=== PATIENT | female | born 1940 | race Caucasian/White ===

== ENCOUNTER 2019-04-02 14:04 | Emergency (ER) | payer MEDICARE, SELFPAY ==
--- NOTE | ~2019-04-02 | US_ITS ---
EXAMINATION: US venous doppler LE EXAM DATE: 04/02/2019 15:41 INDICATION: Swelling. TECHNIQUE: Multiple grayscale, color flow and Doppler images of the lower extremity deep venous syste ms bilaterally were obtained and reviewed. Comparison is made to prior examination from 01/02/2018. FINDINGS: Right side: The right common femoral, femoral and profunda veins demonstrate normal color flow, respi ratory variation, augmentation and compressibility. Compressibility, color flow confirmed within the right popliteal, posterior tibial, peroneal, and greater saphenous veins. Left side: The left common femoral, femoral and profunda veins demonstrate normal color flow, respira tory variation, augmentation and compressibility. Compressibility, color flow confirmed within the l eft popliteal, posterior tibial, peroneal, and greater saphenous veins. IMPRESSION: 1. No lower extremity deep venous thrombosis bilaterally. Reviewed, dictated and finalized at location B. N SOCIOLOGIST
--- NOTE | ~2019-04-02 | XR_ITS ---
EXAMINATION: XR chest 2V DATE: 04/02/2019 16:09 INDICATION: COPD TECHNIQUE: PA and lateral views of the chest are obtained. COMPARISON: 11/12/2018 FINDINGS: There is a chronic small right pleural effusion. Chronic airspace opacities are also presen t in the right lung base. No pneumothorax is identified. There is stable cardiomegaly. There is mild thoracic spondylosis. A right breast implant is noted. IMPRESSION: 1. Chronic small right pleural effusion with associated right basilar airspace opacity, consistent wi th atelectasis versus pneumonia. Reviewed, dictated and finalized at location A. TECHNICIAN IMPRESSION: 1. Chronic small right pleural effusion with associated right basilar airspace opacity, consistent with atelectasis versus pneumonia.
[2019-04-02 14:20] VITALS: BP 107/43; PULSE 90; RESP 20; TEMP 37.1; O2SAT 98
--- NOTE | 2019-04-02 15:00 | PC.NURSE ---
pt c/o sob. no resp distress noted. pulse ox 100%. o2 at 2 l nc per home settings.
[2019-04-02 15:13] LABS: Basophils Percent Auto 0.7 % (0.2-1.2); Eosinophils Absolute Auto 0.1 K/mm3 (0-0.3); Eosinophils Percent Auto 2.5 % (0-4.4); Hematocrit 34.6 % (37.0-47.0); Hemoglobin 10.5 g/dL (12.0-15.0); Immature Granulocyte Absolute 0.01 K/mm3 (0.00-0.031); Immature Granulocyte Percent A 0.2 % (0-0.5); Lymphocytes Absolute Auto 0.61 K/mm3 (0.9-3.2); Lymphocytes Percent Auto 13.8 % (18.3-44.2); Mean Corpuscular HGB Conc 30.3 g/dl (32-36); Mean Corpuscular Volume 102.1 fl (80-100); Mean Platelet Volume 10.6 fl (7.4-10.4); Monocytes Absolute Auto 0.4 K/mm3 (0.1-0.6); Monocytes Percent Auto 8.6 % (2.6-8.5); Neutrophils Absolute Auto 3.3 K/mm3 (1.3-6.7); Neutrophils Percent Auto 74.2 % (45.5-73.1); Platelet Count Result 191 k/mm3 (150-375); Red Blood Count 3.39 M/mm3 (4.2-5.4); Red Cell Distribution Width 15.9 % (11.5-14.5); White Blood Count 4.4 K/mm3 (4.5-10.0)
[2019-04-02 15:25] LABS: Blood Urea Nitrogen 39 mg/dL (7-17); Carbon Dioxide 38 mmol/L (22-30); Chloride 92 mmol/L (98-107); Estimated CRCL calculation 27 ml/min; Estimated Glomerular Filt Rate 36; Glucose 111 mg/dL (65-105); Potassium 4.4 mmol/L (3.4-5.0); Sodium 140 mmol/L (137-145)
--- NOTE | 2019-04-02 16:24 | ED.GENADULT ---
HPI - General Adult General Chief complaint: Unspecified Stated complaint: legs swollen Time Seen by Provider: 04/02/19 14:39 Source: patient, family and old records reviewed Mode of arrival: ambulatory Limitations: no limitations History of Present Illness HPI narrative: Patient is a 78-year-old female who presents with lower extremity edema which she notes is chronic in nature states she was with a family member today who had concern for the swelling and referred her to emergency department for evaluation patient notes history of DVT in the right leg but also has renal insufficiency and heart failure patient denies any chest pain shortness of breath injury or trauma or other complaints and presents in no distress patient know she tries elevation and takes her water pill with some improvement Related Data Home Medications Medication Instructions Recorded Confirmed albuterol sulfate 90 mcg/actuation 2 puff INHALATION Q4H PRN gm 03/19/19 aerosol inhaler ambrisentan 10 mg tablet 10 mg PO DAILY 03/19/19 apixaban 5 mg tablet 5 mg PO BID 03/19/19 bumetanide 1 mg tablet 3 mg PO DAILY tablet 03/19/19 buspirone 5 mg tablet 5 mg PO BID 03/19/19 calcium citrate 200 mg (950 mg) 600 mg PO DAILY tablet 03/19/19 tablet diltiazem HCl 240 mg capsule,24 240 mg PO DAILY 03/19/19 hr,extended release enalapril maleate 2.5 mg tablet 2.5 mg PO TID tablet 03/19/19 gabapentin 100 mg capsule 100 mg PO TID 03/19/19 omega 9-vun-ahs-fish oil 1,000 mg 1 cap PO DAILY 03/19/19 (120 mg-180 mg) capsule potassium chloride 20 mEq 20 meq PO DAILY 03/19/19 tablet,extended release tiotropium bromide 18 mcg capsule 1 cap INHALATION BID inhalation 03/19/19 with inhalation device ursodiol 300 mg capsule 300 mg PO TID cap 03/19/19 Allergies Allergy/AdvReac Type Severity Reaction Status Date / Time codeine Allergy Unknown Verified 09/04/18 14:29 morphine Allergy Unknown Verified 09/04/18 14:29 Review of Systems Review of Systems: All systems reviewed & are unremarkable except as noted in HPI and below PMFSH Past Medical History Medical History Atrial fibrillation, controlled Chronic atrial fibrillation Pleural effusion Family History Family History (Updated 09/04/18 @ 14:31 by DOCTOR UNKNOWN) Mother Diabetes mellitus Cerebrovascular accident Family history of dementia Sibling Hypertension Grandparent Diabetes mellitus Family history of cardiovascular disease Carcinoma of colon Family history unknown Family history of malignant neoplasm of bone Social History Social History Smoking status: Former smoker Second hand tobacco smoke exposure: No Smoking end date: 02/06/99 Alcohol intake: current Gender identity (if verbalized by the patient): Female Exam Narrative: Exam Narrative: GENERAL: Well-appearing, well-nourished, and in no acute distress. HEAD: Normocephalic, atraumatic. EYES: PERRLA and EOMI. ENT: Nares clear, no rhinorrhea or epistaxis. Mucous membranes moist. Oropharynx without tonsillar hypertrophy exudate or other lesions. CHEST: Clear to auscultation. No respiratory distress. No wheezes rales or rhonchi HEART: Irregularly irregular rate and rhythm. No murmur heard. Normal peripheral pulses. EXTREMITIES: Normal range of motion. 1+ edema of the lower extremities SKIN: Warm, dry, no rash. NEURO: No focal deficits. Alert and oriented x3. Neurovascularly intact. Capillary refill less than 2 seconds PSYCH: Normal mood and affect. Course Course Emergency Course: Patient in the room in no distress aware of case findings treatment plan and diagnosis agreeing to follow-up as directed or to return if symptoms worsen or concerns Vital Signs Vital signs: Vital Signs Temperature 98.7 F 04/02/19 14:20 Pulse Rate 90 04/02/19 14:20 Respirato
[2019-04-02 16:40] VITALS: RESP 18
== END 2019-04-02 16:40 | disposition home or self-care (01) ==
PROVIDERS: Emergency Medicine Emergency Medical Services; Emergency Provider Emergency Medicine; PCP Internal Medicine
DX: R60.0 Localized edema (principal); I48.20 Chronic atrial fibrillation, unspecified; Z87.891 Personal history of nicotine dependence
CPT/HCPCS: 36415; 71046; 80048; 85025; 93970; 99284

== ENCOUNTER 2020-05-04 17:32 | Inpatient (IN) | payer MEDICARE, SELFPAY ==
--- NOTE | ~2020-05-04 | XR_ITS ---
EXAMINATION: XR chest 1V portable DATE: 05/04/2020 22:02 INDICATION: Shortness of breath. TECHNIQUE: A single frontal view of the chest was obtained. COMPARISON: Chest 2 views 04/02/2019, CT abdomen and pelvis 05/04/2020 FINDINGS: There are small right and moderate-sized left pleural effusions. There are airspace opaciti es at the lung bases. There is mild scarring at right lung apex. No pneumothorax. Cardiomegaly is not ed. IMPRESSION: 1. Small right and moderate-sized left pleural effusions. 2. Airspace opacities at the lung bases, likely atelectasis. 3. Cardiomegaly. Reviewed, dictated and finalized at location A.
--- NOTE | ~2020-05-04 | CT_ITS ---
EXAMINATION: CT abdomen pelvis w con DATE: 05/04/2020 20:28 INDICATION: Left upper quadrant abdominal pain. Abdominal wall abscess. TECHNIQUE: Computed tomography (CT) of the abdomen and pelvis was performed with 100 mL Omnipaque 350 intravenous contrast. Automated exposure control and iterative reconstruction technique were employe d. The dose-length product was 429.61 mGy-cm. COMPARISON: CT abdomen and pelvis 11/06/2018 FINDINGS: The visualized portions of the lung bases demonstrate emphysema. There are small right and moderate-sized left pleural effusions with chronic pleural thickening on the right. There is dependen t atelectasis in left lung. There are peripheral airspace opacities in right middle lobe and right lo wer lobe, consistent with rounded atelectasis. Calcified pulmonary nodules are consistent with old gr anulomatous disease. Cardiomegaly is noted. No pericardial effusion. There are bilateral breast impla nts. The left breast implant is ruptured. The liver and gallbladder are normal. Calcifications in the spleen are consistent with old granulomatous disease. The pancreas and adrenal glands are normal. Th ere is cortical thinning of the kidneys. There are cysts in right kidney measuring up to 2.4 cm. Ther e are no dilated loops of bowel. The appendix is not visualized. There is a filter in the infrarenal inferior vena cava. There are no pathologically enlarged lymph nodes. There is a small volume of asci tex. There is extensive edema of the body wall and intra-abdominal fat. There is a 4.3 cm linear fore ign body in the left ischiorectal fat. There is moderate lumbar spondylosis. IMPRESSION: 1. Anasarca including small right and moderate-sized left pleural effusions and small volume of ascit es. 2. Cardiomegaly. 3. Chronic 4.3 cm linear foreign body in the left ischiorectal fat. Reviewed, dictated and finalized at location A. IMPRESSION: 1. Anasarca including small right and moderate-sized left pleural effusions and small volume of ascites. 2. Cardiomegaly. 3. Chronic 4.3 cm linear foreign body in the left ischiorectal fat.
--- NOTE | ~2020-05-04 | XR_ITS ---
XR chest 2V 05/06/2020 12:23 Indication: Pleural effusion Procedure: PA and lateral views of the chest Comparison: Comparison to multiple prior studies sequentially, with oldest reviewed study dated 06/2018. Findings: Cardiomegaly. Bibasilar airspace disease. Small effusions. No pneumothorax. Impression: 1: Bibasilar airspace disease may represent pneumonia and/or atelectasis. 2: Small pleural effusions. Reviewed, dictated and finalized at location B. Impression: 1: Bibasilar airspace disease may represent pneumonia and/or atelectasis. 2: Small pleural effusions.
[2020-05-04 18:14] VITALS: BP 122/36; PULSE 80; RESP 16; TEMP 36.1; O2SAT 98
[2020-05-04 19:52] LABS: Basophils Percent Auto 0.3 % (0.2-1.2); Eosinophils Absolute Auto 0.1 K/mm3 (0-0.3); Eosinophils Percent Auto 0.8 % (0-4.4); Hematocrit 38.9 % (37.0-47.0); Hemoglobin 11.8 g/dL (12.0-15.0); Immature Granulocyte Absolute 0.03 K/mm3 (0.00-0.031); Immature Granulocyte Percent A 0.5 % (0-0.5); Lymphocytes Absolute Auto 0.68 K/mm3 (0.9-3.2); Lymphocytes Percent Auto 11.3 % (18.3-44.2); Mean Corpuscular HGB Conc 30.3 g/dl (32-36); Mean Corpuscular Hemoglobin 29.9 pg (26-34); Mean Corpuscular Volume 98.7 fl (80-100); Mean Platelet Volume 10.8 fl (7.4-10.4); Monocytes Absolute Auto 0.5 K/mm3 (0.1-0.6); Monocytes Percent Auto 8.8 % (2.6-8.5); Neutrophils Absolute Auto 4.7 K/mm3 (1.3-6.7); Neutrophils Percent Auto 78.3 % (45.5-73.1); Platelet Count Result 190 k/mm3 (150-375); Red Blood Count 3.94 M/mm3 (4.2-5.4); Red Cell Distribution Width 14.8 % (11.5-14.5)
[2020-05-04 20:02] LABS: Prothrombin Time 13.4 Seconds (11.1-14.7)
[2020-05-04 20:04] LABS: Alanine Aminotransferase 25 U/L (4-35); Albumin Level 3.8 g/dL (3.5-5.1); Alkaline Phosphatase 84 U/L (38-126); Anion Gap 6 mmol/L (8-16); Aspartate Amino Transferase 40 U/L (14-36); Bilirubin,Total 0.6 mg/dL (0.2-1.3); Blood Urea Nitrogen 16 mg/dL (7-17); Calcium 8.6 mg/dL (8.4-10.2); Carbon Dioxide 32 mmol/L (22-30); Chloride 100 mmol/L (98-107); Estimated CRCL calculation 33 ml/min; Estimated Glomerular Filt Rate 48; Glucose 140 mg/dL (65-105); Potassium 5.2 mmol/L (3.4-5.0); Sodium 138 mmol/L (137-145)
--- NOTE | 2020-05-04 21:32 | ECG_ITS ---
Measurements Intervals [place] Rate: 82 P: IN: 0 QRS: 76 QRSD: 97 T: 4 QT: 363 QTc: 425 Interpretive Statements ATRIAL FIBRILLATION INCOMPLETE RIGHT BUNDLE BRANCH BLOCK CANNOT RULE OUT SEPTAL INFARCT, AGE INDETERMINATE BORDERLINE ST-T WAVE ABNORMALITY- INFERIOR LEADS BASELINE ARTIFACT- V3-V6 ABNORMAL ECG Electronically Signed On 05-05-2020 7:06:27 CDT by Fantasma Sandhu D.O.
[2020-05-04 21:53] LABS: Prothrombin Time 13.4 Seconds (11.1-14.7)
[2020-05-04 22:10] LABS: NT Pro B Type Natriuretic Pept 11500 PG/ML (5-100)
--- NOTE | 2020-05-04 23:22 | ED.GENADULT ---
HPI - General Adult General Chief complaint: Skin/Abscess/Foreign Body Stated complaint: LUMP UNDER BREAST Time Seen by Provider: 05/04/20 19:20 Source: patient and family Mode of arrival: ambulatory Limitations: no limitations History of Present Illness HPI narrative: 79-year-old with history of COPD on 2 L on home oxygen was brought in by daughter with complaints of swelling on the left side of her chest and upper abdomen for past 3 days. Patient denies any fall. She denies any chest pain, fever or chills. Onset (ago): day(s) (3) Location: chest and abdomen Radiation: back Severity: moderate Exacerbating factors: none Associated symptoms: denies other symptoms Related Data Home Medications Medication Instructions Recorded Confirmed albuterol sulfate 90 mcg/actuation 2 puff INHALATION Q4H PRN gm 03/19/19 aerosol inhaler ambrisentan 10 mg tablet 10 mg PO DAILY 03/19/19 apixaban 5 mg tablet 5 mg PO BID 03/19/19 bumetanide 1 mg tablet 3 mg PO DAILY tablet 03/19/19 buspirone 5 mg tablet 10 mg PO BID 03/19/19 calcium citrate 200 mg (950 mg) 600 mg PO DAILY tablet 03/19/19 tablet diltiazem HCl 240 mg capsule,24 240 mg PO DAILY 03/19/19 hr,extended release enalapril maleate 2.5 mg tablet 2.5 mg PO TID tablet 03/19/19 gabapentin 100 mg capsule 100 mg PO TID 03/19/19 omega 6-zle-crg-fish oil 1,000 mg 1 cap PO DAILY 03/19/19 (120 mg-180 mg) capsule potassium chloride 20 mEq 20 meq PO DAILY 03/19/19 tablet,extended release tiotropium bromide 18 mcg capsule 1 cap INHALATION BID inhalation 03/19/19 with inhalation device ursodiol 300 mg capsule 300 mg PO TID cap 03/19/19 aspirin 81 mg PO DAILY 05/04/20 05/04/20 duloxetine mg PO 05/04/20 omeprazole 05/04/20 Allergies Allergy/AdvReac Type Severity Reaction Status Date / Time codeine Allergy Unknown Unknown Verified 05/04/20 19:34 morphine Allergy Unknown Unknown Verified 05/04/20 19:34 Review of Systems Review of Systems: All systems reviewed & are unremarkable except as noted in HPI and below Constitutional: Constitutional: Reports no additional constitutional complaints Eyes: Eyes: Reports no additional eye complaints ENT: Reports system reviewed and no additional complaints, except as documented Cardiovascular: Cardiovascular: Reports as per HPI Respiratory: Respiratory: Reports as per HPI Gastrointestinal: Gastrointestinal: Reports as per HPI Musculoskeletal: Musculoskeletal: Reports no additional musculoskeletal complaints Neurologic: Reports system reviewed and no additional complaints, except as documented Endocrine: Endocrine: Reports no additional endocrine complaints Hematologic/Lymphatic: Hematologic/Lymphatic: Reports no additional hematologic/lymphatic complaints [facility] Past Medical History Medical History Atrial fibrillation, controlled Chronic atrial fibrillation Pleural effusion Family History Family History Mother Diabetes mellitus Cerebrovascular accident Family history of dementia Sibling Hypertension Grandparent Diabetes mellitus Family history of cardiovascular disease Carcinoma of colon Family history unknown Family history of malignant neoplasm of bone Social History Social History Smoking status: Former smoker Second hand tobacco smoke exposure: No Smoking end date: 02/06/99 Alcohol intake: current Gender identity (if verbalized by the patient): Female Exam Narrative: Exam Narrative: GENERAL: Well-appearing, well-nourished, confusion HEAD: Normocephalic, atraumatic. EYES: PERRLA and EOMI.. NECK: Supple. CHEST: Rales , poor entry in the lower bases HEART: Regular rate and rhythm. No murmur heard. Normal peripheral pulses. ABDOMEN: Soft, nontender, nondistended, normal active bowel sounds
[2020-05-05] VITALS (17 sets, daily range): BP systolic 112–143; BP diastolic 46–74; PULSE 81–125; RESP 16–20; TEMP 36.4–36.9; O2SAT 90–99; BMI 24.2
--- NOTE | 2020-05-05 | ECHO_ITS ---
Patient Info Name: Tiffany Chavez Age: 79 years : 1940 Gender: Female Ht: 65 in Wt: 130 lbs BSA: 1.65 m2 HR: 118 bpm BP: 143 / 69 mmHg Technical Quality: Good Exam Date: 05/05/2020 8:04 AM Exam Location: [facility] Pulmonary Patient Status: Inpatient Admit Date: 05/04/2020 Staff Ordering Physician: Trace Joya MD Naturopathic Physician: Nael Bay RDCS, RT Attending Provider: Addie Rae PA-C Exam Type: CA echo doppler color flow Study Info Indications I50.20 - Unspecified systolic (congestive) heart failure Complete two-dimensional, color flow and Doppler transthoracic echocardiogram is performed. Summary 1. Complete two-dimensional, color flow and Doppler transthoracic echocardiogram is performed. 2. Normal LV size, mild LVH, normal LV systolic function, EF about 70%; diastolic dysfunction is present. RV enlargement with severe systolic dysfunction. Mild left atrial enlargement, moderate right atrial enlargement. Mild MR. Aortic valve is moderately calcified with restricted leaflet mobility; severe aortic stenosis with relatively low mean gradient; vmax 3.33 m/sec, mean gradient 24 mmHg, calculated aortic valve area 0.9 cm2. [id number] TR, severe pulmonary hypertension, RVSP 100 mmHg, dilated IVC without respiratory collapse. Left Ventricle Left ventricular chamber dimension is normal. Left ventricular systolic function is hyperdynamic, estimated at >70%. The left ventricular diastolic function is abnormal. Right Ventricle Right ventricular chamber dimension is mildly enlarged. Right ventricular systolic function is reduced. Left Atria Left atrial chamber dimension is mildly enlarged. Right Atria Right atrial chamber dimension is moderately enlarged. Aortic Valve There is severe aortic valve stenosis with a peak velocity of 333 cm/s, mean gradient of 22 mmHg, and aortic valve area of 0.9 cm2. There is moderate aortic valve calcification. Pulmonic Valve The pulmonic valve is normal. Mitral Valve The mitral valve has normal leaflets. There is mild mitral valve regurgitation. Tricuspid Valve The tricuspid valve leaflets are normal. There is mild to moderate tricuspid valve regurgitation. Severe pulmonary hypertension, estimated pulmonary arterial systolic pressure is 100 mmHg. Pericardium/Pleural The pericardium appears normal. Inferior Vena Cava Dilated inferior vena cava with no collapse upon inspiration consistent with elevated right atrial pressure, 15 mmHg. Left Ventricular Outflow Tract Name Value Normal LVOT 2D LVOT Diameter 1.9 cm LVOT Doppler LVOT Peak Gradient 2 mmHg LVOT Mean Gradient 1 mmHg LVOT VTI 19 cm LVOT VTI/AV VTI Ratio 0.3 LVOT Stroke Volume 52 ml LVOT CO 4.3 l/min LVOT CI 2.6 l/min/m2 Pulmonic Valve Name Value Normal
[2020-05-05] MEDS: FUROSEMIDE INJ 40 MG/4 ML VIAL IV PUSH ×3 (00:22→17:18)
--- NOTE | 2020-05-05 00:30 | ADMGEN ---
This patient, Tiffany Chavez, was admitted to 3 [facility] Surg Room 307-01. Patient/family oriented to hospital policies and general routines including ID bracelet, bed and alarms, visiting hours, pain management, procedures, bathroom and other care routines, personal items, smoking policy, room service/diet, and visiting hours. Information on how to activate the Rapid Response Team has been discussed. Patient/Family are encouraged to report perceived risks to care and to ask questions if they do not understand what they are told or what they should do.
[2020-05-05 03:14] LABS: Troponin I 0.019 ng/mL (0.000-0.034)
[2020-05-05 06:27] LABS: Anion Gap 4 mmol/L (8-16); Blood Urea Nitrogen 17 mg/dL (7-17); Calcium 8.6 mg/dL (8.4-10.2); Carbon Dioxide 32 mmol/L (22-30); Chloride 101 mmol/L (98-107); Estimated CRCL calculation 34 ml/min; Estimated Glomerular Filt Rate 48; Glucose 113 mg/dL (65-105); Potassium 4.4 mmol/L (3.4-5.0); Sodium 137 mmol/L (137-145)
[2020-05-05 06:33] LABS: Troponin I 0.021 ng/mL (0.000-0.034)
[2020-05-05] MEDS: IPRATROPIUM BR 0.02% INH SOLN 0.5 MG/2.5 ML VIAL INHALATION ×3 (07:45→21:18)
[2020-05-05] MEDS: ALBUTEROL SULFATE NEB 2.5 MG/0.5 ML INH 5 MG INHALATION ×3 (07:45→21:18)
[2020-05-05 08:52] LABS: Troponin I 0.017 ng/mL (0.000-0.034)
[2020-05-05] MEDS: busPIRone HCL 5 MG TABLET 10 MG PO ×2 (09:13→20:36)
[2020-05-05] MEDS: ASPIRIN 81 MG CHEWABLE TABLET PO (09:13)
[2020-05-05] MEDS: FERROUS SULFATE 324 MG TABLET PO (09:16)
[2020-05-05] MEDS: ENALAPRIL MALEATE 2.5 MG TABLET PO ×2 (09:16→20:37)
[2020-05-05] MEDS: MEMANTINE 5 MG TABLET PO ×2 (09:16→20:37)
[2020-05-05] MEDS: DULoxetine HCL 60 MG CAPSULE.DR PO (09:17)
--- NOTE | 2020-05-05 10:51 | PM.IMHP ---
H&P: HPI History of Present Illness Date/Time: 05/05/20 10:51 Chief Complaint: Abd swelling Narrative: This is an 79 year old woman with history of chronic atrial fibrillation not on any anticoagulation due to history of GI bleed, chronic right-sided heart failure due to COPD and pulmonary hypertension, chronic respiratory failure on oxygen, dementia, who presented to the ER from [facility] in [place], [place] with complaints of swelling to her abdomen. The patient was getting a bath prior to arrival in the noticed some swelling to her left upper abdomen and decided to bring her into the hospital for further evaluation. The patient is a poor historian secondary to dementia. I spoke with the patients daughter, Marsha Osman, who informed me that she has been seeing her mother at the [facility] and everything was going well until they noticed this swelling prior to arrival and brought her in. The patient does have a [employer] at [facility], and states the patient's right Lung does not work . The patient had a right pleural catheter but it had fallen out a few years ago and could not be replaced. The patient reports having some shortness of breath, more than normal even at rest. Oxygen saturation was 97% on 2.5 L. She denies any chest pain, change to her cough, fever, chills, nausea, vomiting, abdominal pain, diarrhea, constipation, leg swelling, calf pain, dysuria, frequent urination, lightheadedness, dizziness or any other symptoms at this time. Code Status- Full Code POA- Daughter, Marsha Osman Review of Systems Review of Systems: ROS unobtainable: Yes unobtainable due to medical condition [facility] Past Medical History Medical History (Updated 05/05/20 @ 16:11 by Addie Rae PA-C) Atrial fibrillation, controlled Chronic anemia Chronic atrial fibrillation Chronic respiratory failure CKD (chronic kidney disease), stage III Mitral valve insufficiency Nonrheumatic aortic (valve) stenosis PAOD (peripheral arterial occlusive disease) Pleural effusion Pulmonary emphysema Pulmonary hypertension Surgical History Surgical History H/O: hysterectomy Family History Family History Mother Diabetes mellitus Family history of dementia Cerebrovascular accident Hypertension Sibling Hypertension Blood clot in vein Diabetes mellitus Fibromyalgia Grandparent Family history of malignant neoplasm of bone Family history unknown Family history of cardiovascular disease Carcinoma of colon Sibling Blood clot in vein Diabetes mellitus Fibromyalgia Father Hypertension Social History Social History (Updated 05/05/20 @ 16:12 by Addie Rae PA-C) Smoking status: Former smoker Second hand tobacco smoke exposure: No Smoking end date: 02/06/99 Alcohol intake: never Substance use: never Substance use type: does not use Living arrangements: halfway Occupation/Education: retired Gender identity (if verbalized by the patient): Female Spiritual care concerns: No Meds Home Medications and Allergies Home Medications Medication Instructions Recorded Confirmed Type buspirone 5 mg tablet 10 mg PO BID 03/19/19 05/05/20 History diltiazem HCl 240 mg capsule,24 240 mg PO DAILY 03/19/19 05/05/20 History hr,extended release enalapril maleate 2.5 mg tablet 2.5 mg PO BID tablet 03/19/19 05/05/20 History aspirin 81 mg PO DAILY 05/04/20 05/04/20 History duloxetine 60 mg PO DAILY 05/04/20 05/05/20 History omeprazole 20 mg PO DAILY 05/04/20 05/05/20 History ferrous sulfate [Feosol] 325 mg PO DAILY 05/05/20 05/05/20 History fluticasone propion-salmeterol 1 inh INHALATION Q12H 05/05/20 05/05/20 History [Wixela Inhub] memantine 5 mg PO BID 05/05/20 05/05/20 History multivitamin [Daily-Megan] 1 tablet PO DAILY 05/05/20 05/05/20 History tramadol
--- NOTE | 2020-05-05 15:21 | PM.CNCAR ---
Assessment and Plan Assessment and plan (1) Congestive heart failure (CHF): Qualifiers: Heart failure chronicity: acute Heart failure type: unspecified Qualified Code(s): I50.9 - Heart failure, unspecified Code(s): I50.9 - Heart failure, unspecified Status: Acute Assessment and Plan: This is predominantly right-sided heart failure. Continue IV diuretics. Will need to be cautious about over diuresis due to her aortic stenosis. Will reduce her furosemide down to 40 mg IV daily starting tomorrow and then transition back to oral diuretics. Continue calcium channel compa and her other drug regimen without change. Follow intake and output, daily weights and serial basic metabolic panels. (2) Pleural effusion: Code(s): J90 - Pleural effusion, not elsewhere classified Status: Acute Assessment and Plan: Will repeat a chest x-ray a couple of days (3) Atrial fibrillation, controlled: Code(s): I48.91 - Unspecified atrial fibrillation Status: Acute Assessment and Plan: Rate controlled on diltiazem (4) Pulmonary hypertension: Code(s): I27.20 - Pulmonary hypertension, unspecified Status: Acute Assessment and Plan: Severe (5) Nonrheumatic aortic (valve) stenosis: Code(s): I35.0 - Nonrheumatic aortic (valve) stenosis Status: Acute Assessment and Plan: Moderate to severe History of Present Illness History of Present Illness Consult date/time: 05/05/20 15:21 Requesting physician: Trace Joya MD Consult reason: congestive heart failure Reason For Visit: chf Narrative: Date of service 05/05/2020 Reason for consultation heart failure History: Patient is an 79-year-old female who seems to have dementia or least altered mental status.. History is predominantly obtained by talking to the patient's well as reviewing chart record and review. Patient sees . Patient states that she came here because her sister was recently in town she wanted to ?get things checked out ?. In reviewing the chart record 3rd was some reported swelling on the left side of her chest and abdomen for the past couple of days. BNP was over 11,000. She does have a history of chronic pulmonary hypertension, COPD. She also has chronic atrial fibrillation and chronic right-sided heart failure due to the COPD and pulmonary hypertension. Patient states that she is chronically short of breath uses oxygen when she needs it. She otherwise denies any syncope, presyncope, paroxysmal nocturnal dyspnea, orthopnea, edema, palpitations or chest pain. She was started on IV diuretics and according to her nurse breathing has improved. Review of Systems Review of Systems: All systems reviewed & are unremarkable except as noted in HPI and below Eyes: Eyes: Denies blurry vision ENT: Reports Normal hearing present Cardiovascular: Cardiovascular: Denies chest pain and Denies leg edema Respiratory: Respiratory: Reports dyspnea and Reports dyspnea on exertion Gastrointestinal: Gastrointestinal: Denies abdominal pain and Reports bloating Genitourinary: Genitourinary: Denies flank pain Musculoskeletal: Musculoskeletal: Denies back pain and Denies neck pain Integumentary/Breasts: Skin/Breast: Denies dry skin Neurologic: Denies headache(s) Psychiatric: Psychiatric: Denies anxiety and Denies confusion Endocrine: Endocrine: Denies excessive sweating and Denies fatigue Hematologic/Lymphatic: Hematologic/Lymphatic: Denies easy bleeding Allergic/Immunologic: Allergic/Immunologic: Denies GI upset with certain foods PMFSH Past Medical History Medical History Atrial fibrillation, controlled Chronic atrial fibrillation Pleural effusion Family History Family History Mother Diabetes mellitus Family history of dementia Cerebrovascular a
[2020-05-05] MEDS: ENOXAPARIN 40 MG/0.4 ML SYRINGE SUB-Q (17:18)
[2020-05-05] MEDS: PANTOPRAZOLE 40 MG TABLET PO (20:36)
[2020-05-05] MEDS: FLUTICASONE/SALMETEROL 45-21 MCG INHALER 1 PUFF 2 PUFF INHALATION (21:21)
[2020-05-06] VITALS (17 sets, daily range): BP systolic 116–147; BP diastolic 54–68; PULSE 81–108; RESP 18–22; TEMP 36.6–37.2; O2SAT 92–99
[2020-05-06] MEDS: IPRATROPIUM BR 0.02% INH SOLN 0.5 MG/2.5 ML VIAL INHALATION ×4 (03:23→19:29)
[2020-05-06] MEDS: ALBUTEROL SULFATE NEB 2.5 MG/0.5 ML INH 5 MG INHALATION ×4 (03:23→19:29)
[2020-05-06 06:40] LABS: Basophils Percent Auto 0.8 % (0.2-1.2); Eosinophils Absolute Auto 0.1 K/mm3 (0-0.3); Eosinophils Percent Auto 1.9 % (0-4.4); Hematocrit 36.1 % (37.0-47.0); Hemoglobin 11.4 g/dL (12.0-15.0); Immature Granulocyte Absolute 0.01 K/mm3 (0.00-0.031); Immature Granulocyte Percent A 0.2 % (0-0.5); Lymphocytes Absolute Auto 0.86 K/mm3 (0.9-3.2); Lymphocytes Percent Auto 17.8 % (18.3-44.2); Mean Corpuscular HGB Conc 31.6 g/dl (32-36); Mean Corpuscular Hemoglobin 30.3 pg (26-34); Mean Platelet Volume 11.4 fl (7.4-10.4); Monocytes Absolute Auto 0.5 K/mm3 (0.1-0.6); Monocytes Percent Auto 9.8 % (2.6-8.5); Neutrophils Absolute Auto 3.4 K/mm3 (1.3-6.7); Neutrophils Percent Auto 69.5 % (45.5-73.1); Platelet Count Result 177 k/mm3 (150-375); Red Blood Count 3.76 M/mm3 (4.2-5.4); White Blood Count 4.8 K/mm3 (4.5-10.0)
[2020-05-06 07:00] LABS: Alanine Aminotransferase 24 U/L (4-35); Albumin Level 3.8 g/dL (3.5-5.1); Alkaline Phosphatase 73 U/L (38-126); Anion Gap 2 mmol/L (8-16); Aspartate Amino Transferase 45 U/L (14-36); Bilirubin,Total 0.8 mg/dL (0.2-1.3); Blood Urea Nitrogen 15 mg/dL (7-17); Calcium 8.3 mg/dL (8.4-10.2); Carbon Dioxide 35 mmol/L (22-30); Chloride 99 mmol/L (98-107); Estimated CRCL calculation 37 ml/min; Estimated Glomerular Filt Rate 53; Glucose 126 mg/dL (65-105); Magnesium 1.8 mg/dL (1.6-2.3); Sodium 136 mmol/L (137-145)
[2020-05-06] MEDS: FLUTICASONE/SALMETEROL 45-21 MCG INHALER 1 PUFF 2 PUFF INHALATION ×2 (08:06→19:29)
[2020-05-06] MEDS: DULoxetine HCL 60 MG CAPSULE.DR PO (09:01)
[2020-05-06] MEDS: busPIRone HCL 5 MG TABLET 10 MG PO ×2 (09:01→20:56)
[2020-05-06] MEDS: PANTOPRAZOLE 40 MG TABLET PO ×2 (09:02→20:59)
[2020-05-06] MEDS: FERROUS SULFATE 324 MG TABLET PO (09:02)
[2020-05-06] MEDS: ENALAPRIL MALEATE 2.5 MG TABLET PO ×2 (09:03→20:57)
[2020-05-06] MEDS: MEMANTINE 5 MG TABLET PO ×2 (09:03→20:58)
[2020-05-06] MEDS: ASPIRIN 81 MG CHEWABLE TABLET PO (09:03)
[2020-05-06] MEDS: FUROSEMIDE INJ 40 MG/4 ML VIAL IV PUSH (09:04)
--- NOTE | 2020-05-06 11:55 | PM.PNCARD ---
Progress Note: A&P Assessment and Plan (1) Congestive heart failure (CHF): Qualifiers: Heart failure chronicity: acute Heart failure type: unspecified Qualified Code(s): I50.9 - Heart failure, unspecified Code(s): I50.9 - Heart failure, unspecified Status: Acute Assessment and Plan: This is predominantly right-sided heart failure. Continue IV diuretics. Will need to be cautious about over diuresis due to her aortic stenosis. continue furosemide 40 mg IV daily starting tomorrow and then transition back to oral diuretics. Continue calcium channel compa and her other drug regimen without change. (2) Pleural effusion: Code(s): J90 - Pleural effusion, not elsewhere classified Status: Acute Assessment and Plan: PA and lateral chest x-ray be ordered today (3) Atrial fibrillation, controlled: Code(s): I48.91 - Unspecified atrial fibrillation Status: Acute Assessment and Plan: Rate controlled on diltiazem (4) Pulmonary hypertension: Code(s): I27.20 - Pulmonary hypertension, unspecified Status: Inactive Assessment and Plan: Severe (5) Nonrheumatic aortic (valve) stenosis: Code(s): I35.0 - Nonrheumatic aortic (valve) stenosis Status: Acute Assessment and Plan: Moderate to severe Subjective Date/time seen: 05/06/20 11:55 Interval history: 79-year-old admitted for shortness of breath Date of service 05/06/2020: Feels okay. No chest pain or short of breath Review of Systems Review of Systems: All systems reviewed & are unremarkable except as noted in HPI and below Constitutional: Constitutional: Denies excessive sweating, Denies fatigue and Denies headache(s) Eyes: Eyes: Denies blurry vision ENT: Reports Normal hearing present, Denies headache(s) and Denies neck pain Cardiovascular: Cardiovascular: Denies chest pain, Denies leg edema, Reports dyspnea and Reports dyspnea on exertion Respiratory: Respiratory: Reports dyspnea and Reports dyspnea on exertion Gastrointestinal: Gastrointestinal: Denies abdominal pain and Reports bloating Genitourinary: Genitourinary: Denies flank pain Musculoskeletal: Musculoskeletal: Denies back pain and Denies neck pain Integumentary/Breasts: Skin/Breast: Denies dry skin Neurologic: Reports Normal hearing present, Denies confusion and Denies headache(s) Psychiatric: Psychiatric: Denies anxiety and Denies confusion Endocrine: Endocrine: Denies excessive sweating and Denies fatigue Hematologic/Lymphatic: Hematologic/Lymphatic: Denies easy bleeding Allergic/Immunologic: Allergic/Immunologic: Denies GI upset with certain foods Exam Narrative: Exam Narrative: Patient is awake. She is alert oriented x1. Appears stated age Const: General: comfortable and no acute distress; No confusion Orientation/consciousness: No confusion HENMT: General nose exam: Normal nares present Eyes: Sclera: sclerae normal Neck: Neck: supple and no JVD Chest: Other: No reproducible chest wall pain to palpation Resp: Auscultation: diminished lung sounds Other: Blunting at the bases. Crackles are heard Cardio: Rate: regular rate Rhythm: abnormal rhythm irregularly irregular Skin: General skin exam: normal color Neuro: General: No confusion Cranial nerves: Yes Normal hearing present Cognition (Neuro): abnormal cognition Speech: normal speech Extrem: General: normal to inspection and no edema Psych: Affect: normal affect Objective Data Vital Signs Vital Signs: Vital Signs - 24 hr 05/05/20 12:00 05/05/20 14:00 05/05/20 14:12 Temperature 36.7 C Pulse Rate 115 H 92 94 Respiratory Rate 16 20 Blood Pressure 112/46 L Pulse Oximetry 94 05/05/20 14:20 05/05/20 16:00 05/05/20 20:00 Temperature Pulse Rate 87 110 H 105 H Respiratory Rate 20 Blood Pressure Pulse Oximetry 05/05/20 21:18 05/05/20 21:30 05/05/20 22:00 Temperature 3
--- NOTE | 2020-05-06 12:33 | PM.IMPN ---
Progress Note: A&P Assessment and Plan (1) Anasarca: Code(s): R60.1 - Generalized edema Status: Acute Assessment and Plan: Due to abdominal distension and some swelling to her abdomen a CT was ordered in the ER which showed anasarca. BNP was 11,500. Most likely related to her right-sided heart failure. Also showing a small right and moderate left-sided pleural effusion with a small amount of abdominal ascites. Reviewing old records she was on Bumex 1 mg twice daily. Her medications were reviewed from her living facility and does not show any diuretics. She was started on IV Lasix 40 mg b.i.d, which is diuresising her well at this point. Echocardiogram was ordered showing Normal LV size, mild LVH, normal LV systolic function, EF about 70%; diastolic dysfunction is present. RV enlargement with severe systolic dysfunction. Aortic valve is moderately calcified with restricted leaflet mobility; severe aortic stenosis with relatively low mean gradient; vmax 3.33 m/sec, mean gradient 24 mmHg, calculated aortic valve area 0.9 cm2. [id number] TR, severe pulmonary hypertension, RVSP 100 mmHg, dilated IVC without respiratory collapse. Cardiology was consulted and decreased IV Lasix to 40 mg daily and to monitor blood pressure due to severe . Cardiology ordered repeat CXR today. Edema is improving to extremities and abdominal area. Continue monitoring fluid status, weights daily, urine output, fluid restrict to 1800 cc daily (2) Pleural effusion: Code(s): J90 - Pleural effusion, not elsewhere classified Status: Acute Assessment and Plan: See above under anasarca. (3) Congestive heart failure (CHF): Qualifiers: Heart failure chronicity: acute Heart failure type: unspecified Qualified Code(s): I50.9 - Heart failure, unspecified Code(s): I50.9 - Heart failure, unspecified Status: Acute Assessment and Plan: History of right-sided congestive heart failure with a preserved EF from prior echo. Will repeat echocardiogram showed right sided heart failure and diastolic dysfunction. Cardiology is consulted. Continue monitoring. (4) Atrial fibrillation, controlled: Code(s): I48.91 - Unspecified atrial fibrillation Status: Acute Assessment and Plan: She is not on any long-term anticoagulation due to history of GI bleeding. Continue Cardizem orally daily. (5) Chronic respiratory failure: Code(s): J96.10 - Chronic respiratory failure, unspecified whether with hypoxia or hypercapnia Status: Acute Assessment and Plan: Patient is resting comfortably on 4 L via nasal cannula at this time. Home Oxygen appears to be between 3-5L at [facility]. Breathing treatments have been scheduled. (6) CKD (chronic kidney disease), stage III: Code(s): N18.30 - Chronic kidney disease, stage 3 unspecified Status: Acute Assessment and Plan: Renal function appears to be stable from prior labs. Creatinine 1.0 today. Continue monitoring during diuresis. Time Spent With Patient Time with patient: 25 - 35 minutes Subjective Date/time seen: 05/06/20 12:33 Interval history: Date of service 05/06/2020: Patient reports improvement in her breathing. She denies any shortness of breath at this time, she is now on 4 L of oxygen. She denies any coughing, chest pain, fever, chills, nausea, vomiting, abdominal pain, diarrhea, constipation, leg swelling or any other symptoms at this time. Review of Systems Review of Systems: ROS unobtainable: Yes unobtainable due to medical condition Exam Narrative: Exam Narrative: General: 79-year-old woman sitting
[2020-05-06] MEDS: ENOXAPARIN 40 MG/0.4 ML SYRINGE SUB-Q (16:54)
[2020-05-07] VITALS (23 sets, daily range): BP systolic 103–139; BP diastolic 44–68; PULSE 83–128; RESP 16–22; TEMP 36.5–37; O2SAT 88–97
[2020-05-07] MEDS: ALBUTEROL SULFATE NEB 2.5 MG/0.5 ML INH 5 MG INHALATION ×4 (03:05→21:07)
[2020-05-07] MEDS: IPRATROPIUM BR 0.02% INH SOLN 0.5 MG/2.5 ML VIAL INHALATION ×4 (03:05→21:07)
[2020-05-07 06:39] LABS: Hematocrit 35.3 % (37.0-47.0); Hemoglobin 11.1 g/dL (12.0-15.0); Mean Corpuscular HGB Conc 31.4 g/dl (32-36); Mean Corpuscular Hemoglobin 29.9 pg (26-34); Mean Corpuscular Volume 95.1 fl (80-100); Mean Platelet Volume 11.5 fl (7.4-10.4); Platelet Count Result 169 k/mm3 (150-375); Red Blood Count 3.71 M/mm3 (4.2-5.4); Red Cell Distribution Width 14.9 % (11.5-14.5); White Blood Count 4.6 K/mm3 (4.5-10.0)
[2020-05-07 06:52] LABS: Anion Gap 2 mmol/L (8-16); Blood Urea Nitrogen 12 mg/dL (7-17); Calcium 8.5 mg/dL (8.4-10.2); Carbon Dioxide 34 mmol/L (22-30); Chloride 99 mmol/L (98-107); Estimated CRCL calculation 41 ml/min; Estimated Glomerular Filt Rate 60; Glucose 112 mg/dL (65-105); Potassium 3.9 mmol/L (3.4-5.0); Sodium 135 mmol/L (137-145)
[2020-05-07] MEDS: FLUTICASONE/SALMETEROL 45-21 MCG INHALER 1 PUFF 2 PUFF INHALATION ×2 (07:53→21:07)
[2020-05-07] MEDS: ASPIRIN 81 MG CHEWABLE TABLET PO (08:20)
[2020-05-07] MEDS: busPIRone HCL 5 MG TABLET 10 MG PO ×2 (08:20→20:52)
[2020-05-07] MEDS: PANTOPRAZOLE 40 MG TABLET PO ×2 (08:21→20:53)
[2020-05-07] MEDS: FERROUS SULFATE 324 MG TABLET PO (08:21)
[2020-05-07] MEDS: DULoxetine HCL 60 MG CAPSULE.DR PO (08:21)
[2020-05-07] MEDS: MEMANTINE 5 MG TABLET PO ×2 (08:21→20:53)
--- NOTE | 2020-05-07 13:19 | PM.PNCARD ---
Progress Note: A&P Assessment and Plan (1) Congestive heart failure (CHF): Qualifiers: Heart failure chronicity: acute Heart failure type: unspecified Qualified Code(s): I50.9 - Heart failure, unspecified Code(s): I50.9 - Heart failure, unspecified Status: Acute Assessment and Plan: This is predominantly right-sided heart failure. Furosemide 20 mg IV times 1. Continue calcium channel compa and her other drug regimen without change. (2) Pleural effusion: Code(s): J90 - Pleural effusion, not elsewhere classified Status: Acute Assessment and Plan: Small (3) Atrial fibrillation, controlled: Code(s): I48.91 - Unspecified atrial fibrillation Status: Acute Assessment and Plan: Rate controlled on diltiazem (4) Pulmonary hypertension: Code(s): I27.20 - Pulmonary hypertension, unspecified Status: Inactive Assessment and Plan: Severe (5) Nonrheumatic aortic (valve) stenosis: Code(s): I35.0 - Nonrheumatic aortic (valve) stenosis Status: Acute Assessment and Plan: Moderate to severe DC planning Subjective Date/time seen: 05/07/20 13:19 Interval history: 79-year-old admitted for shortness of breath Date of service 05/07/2020: She is a little more short of breath today. No chest pain. No swelling Review of Systems Review of Systems: All systems reviewed & are unremarkable except as noted in HPI and below Constitutional: Constitutional: Denies excessive sweating, Denies fatigue and Denies headache(s) Eyes: Eyes: Denies blurry vision ENT: Reports Normal hearing present, Denies headache(s) and Denies neck pain Cardiovascular: Cardiovascular: Denies chest pain, Denies leg edema, Reports dyspnea and Reports dyspnea on exertion Respiratory: Respiratory: Reports dyspnea and Reports dyspnea on exertion Gastrointestinal: Gastrointestinal: Denies abdominal pain and Reports bloating Genitourinary: Genitourinary: Denies flank pain Musculoskeletal: Musculoskeletal: Denies back pain and Denies neck pain Integumentary/Breasts: Skin/Breast: Denies dry skin Neurologic: Reports Normal hearing present, Denies confusion and Denies headache(s) Psychiatric: Psychiatric: Denies anxiety and Denies confusion Endocrine: Endocrine: Denies excessive sweating and Denies fatigue Hematologic/Lymphatic: Hematologic/Lymphatic: Denies easy bleeding Allergic/Immunologic: Allergic/Immunologic: Denies GI upset with certain foods Exam Narrative: Exam Narrative: Patient is awake. She is alert oriented x1. Appears stated age Const: General: comfortable and no acute distress; No confusion Orientation/consciousness: No confusion HENMT: General nose exam: Normal nares present Eyes: Sclera: sclerae normal Neck: Neck: supple and no JVD Chest: Other: No reproducible chest wall pain to palpation Resp: Auscultation: diminished lung sounds Other: Blunting at the bases. Crackles are heard Cardio: Rate: regular rate Rhythm: abnormal rhythm irregularly irregular Skin: General skin exam: normal color Neuro: General: No confusion Cranial nerves: Yes Normal hearing present Cognition (Neuro): abnormal cognition Speech: normal speech Extrem: General: normal to inspection and no edema Psych: Affect: normal affect Objective Data Vital Signs Vital Signs: Vital Signs - 24 hr 05/06/20 14:00 05/06/20 15:05 05/06/20 16:00 Temperature 37.2 C Pulse Rate 99 87 87 Respiratory Rate 22 H 18 Blood Pressure 116/54 L Pulse Oximetry 99 05/06/20 19:30 05/06/20 19:40 05/06/20 20:00 Temperature Pulse Rate 99 103 H 100 Respiratory Rate 18 18 Blood Pressure Pulse Oximetry 05/06/20 21:54 05/07/20 00:00 05/07/20 03:06 Temperature 36.9 C Pulse Rate 95 94 104 H Respiratory Rate 20 18 Blood Pressure 147/64 H Pulse Oximetry 95 05/07/20 03:17 05/07/20 03:40 05/07/20 04:00 Temperature
--- NOTE | 2020-05-07 13:38 | PM.IMPN ---
Progress Note: A&P Assessment and Plan (1) Congestive heart failure (CHF): Qualifiers: Heart failure chronicity: acute Heart failure type: unspecified Qualified Code(s): I50.9 - Heart failure, unspecified Code(s): I50.9 - Heart failure, unspecified Status: Acute Assessment and Plan: Acute on chronic Right Sided Congestive Heart Failure. Due to abdominal distension and some swelling to her abdomen a CT was ordered in the ER which showed anasarca. BNP was 11,500. Most likely related to her right-sided heart failure. Also showing a small right and moderate left-sided pleural effusion with a small amount of abdominal ascites. Reviewing old records she was on Bumex 1 mg twice daily. Her medications were reviewed from her living facility and does NOT show any diuretics. She was started on IV Lasix 40 mg b.i.d, which is diuresising her well and Cardiology wanted to give a dose of 20 mg IV Lasix today and monitor her until tomorrow. Echocardiogram was ordered showing Normal LV size, mild LVH, normal LV systolic function, EF about 70%; diastolic dysfunction is present. RV enlargement with severe systolic dysfunction. Aortic valve is moderately calcified with restricted leaflet mobility; severe aortic stenosis with relatively low mean gradient; vmax 3.33 m/sec, mean gradient 24 mmHg, calculated aortic valve area 0.9 cm2. [id number] TR, severe pulmonary hypertension, RVSP 100 mmHg, dilated IVC without respiratory collapse. Continue to monitor blood pressure due to severe . Cardiology ordered repeat CXR 05/06/20 showing small pleural effusions. Edema is improving to extremities and abdominal area. Continue monitoring fluid status, weights daily, urine output, fluid restrict to 1800 cc daily (2) Anasarca: Code(s): R60.1 - Generalized edema Status: Acute Assessment and Plan: See above (3) Pleural effusion: Code(s): J90 - Pleural effusion, not elsewhere classified Status: Acute Assessment and Plan: See above . (4) Atrial fibrillation, controlled: Code(s): I48.91 - Unspecified atrial fibrillation Status: Acute Assessment and Plan: She is not on any long-term anticoagulation due to history of GI bleeding. Continue Cardizem orally daily. (5) Chronic respiratory failure: Code(s): J96.10 - Chronic respiratory failure, unspecified whether with hypoxia or hypercapnia Status: Acute Assessment and Plan: Patient is resting comfortably on 2.5 L via nasal cannula at this time. Breathing treatments have been scheduled. (6) CKD (chronic kidney disease), stage III: Code(s): N18.30 - Chronic kidney disease, stage 3 unspecified Status: Acute Assessment and Plan: Renal function appears to be stable from prior labs. Creatinine 0.9 today, stable. Continue monitoring during diuresis. Time Spent With Patient Time with patient: 25 - 35 minutes Subjective Date/time seen: 05/07/20 13:38 Interval history: Date of service 05/07/2020: Patient reports improvement in her breathing. She denies any shortness of breath at this time, she is now on 4 L of oxygen. She denies any coughing, chest pain, fever, chills, nausea, vomiting, abdominal pain, diarrhea, constipation, leg swelling or any other symptoms at this time. Review of Systems Review of Systems: All systems reviewed & are unremarkable except as noted in HPI and below Exam Narrative: Exam Narrative: General: 79-year-old woman sitting up in bed watching TV, resting comfortably on 2.5 L via NC. Appears comfortable. In no acute distress. Skin: No jaundice or cyanosis. Good skin turgor. Neck: Full range of motion. Supple. Respir
[2020-05-07] MEDS: FUROSEMIDE INJ 40 MG/4 ML VIAL 20 MG IV PUSH (16:58)
[2020-05-07] MEDS: ACETAMINOPHEN 325 MG TABLET 650 MG PO (17:48)
[2020-05-07] MEDS: ENOXAPARIN 40 MG/0.4 ML SYRINGE SUB-Q (20:50)
[2020-05-07] MEDS: ENALAPRIL MALEATE 2.5 MG TABLET PO (20:53)
[2020-05-08] VITALS (8 sets, daily range): BP systolic 120–130; BP diastolic 51–71; PULSE 78–108; RESP 17–18; TEMP 36.7; O2SAT 90–97
[2020-05-08 06:18] LABS: Anion Gap -1 mmol/L (8-16); Blood Urea Nitrogen 11 mg/dL (7-17); Carbon Dioxide 39 mmol/L (22-30); Chloride 101 mmol/L (98-107); Estimated CRCL calculation 34 ml/min; Estimated Glomerular Filt Rate 48; Glucose 106 mg/dL (65-105); Magnesium 1.8 mg/dL (1.6-2.3); Potassium 3.9 mmol/L (3.4-5.0); Sodium 139 mmol/L (137-145)
[2020-05-08] MEDS: IPRATROPIUM BR 0.02% INH SOLN 0.5 MG/2.5 ML VIAL INHALATION ×2 (07:42→13:31)
[2020-05-08] MEDS: ALBUTEROL SULFATE NEB 2.5 MG/0.5 ML INH 5 MG INHALATION ×2 (07:42→13:31)
[2020-05-08] MEDS: FLUTICASONE/SALMETEROL 45-21 MCG INHALER 1 PUFF 2 PUFF INHALATION (07:42)
[2020-05-08] MEDS: ENALAPRIL MALEATE 2.5 MG TABLET PO (08:34)
[2020-05-08] MEDS: FERROUS SULFATE 324 MG TABLET PO (08:34)
[2020-05-08] MEDS: MEMANTINE 5 MG TABLET PO (08:35)
[2020-05-08] MEDS: busPIRone HCL 5 MG TABLET 10 MG PO (08:35)
[2020-05-08] MEDS: ASPIRIN 81 MG CHEWABLE TABLET PO (08:35)
[2020-05-08] MEDS: DULoxetine HCL 60 MG CAPSULE.DR PO (08:35)
[2020-05-08] MEDS: PANTOPRAZOLE 40 MG TABLET PO (08:42)
--- NOTE | 2020-05-08 11:09 | PM.PNCARD ---
Progress Note: A&P Assessment and Plan (1) Congestive heart failure (CHF): Qualifiers: Heart failure chronicity: acute Heart failure type: unspecified Qualified Code(s): I50.9 - Heart failure, unspecified Code(s): I50.9 - Heart failure, unspecified Status: Acute Assessment and Plan: This is predominantly right-sided heart failure. Additional furosemide 40 mg IV x1 Continue calcium channel compa and her other drug regimen without change. (2) Pleural effusion: Code(s): J90 - Pleural effusion, not elsewhere classified Status: Acute Assessment and Plan: Small (3) Atrial fibrillation, controlled: Code(s): I48.91 - Unspecified atrial fibrillation Status: Acute Assessment and Plan: Rate controlled on diltiazem (4) Pulmonary hypertension: Code(s): I27.20 - Pulmonary hypertension, unspecified Status: Inactive Assessment and Plan: Severe (5) Nonrheumatic aortic (valve) stenosis: Code(s): I35.0 - Nonrheumatic aortic (valve) stenosis Status: Acute Assessment and Plan: Moderate to severe DC planning Subjective Date/time seen: 05/08/20 11:09 Interval history: 79-year-old admitted for shortness of breath Date of service 05/08/2020: Shortness breath is stable. No chest pain. Mild swelling. Review of Systems Review of Systems: All systems reviewed & are unremarkable except as noted in HPI and below Constitutional: Constitutional: Denies excessive sweating, Denies fatigue and Denies headache(s) Eyes: Eyes: Denies blurry vision ENT: Reports Normal hearing present, Denies headache(s) and Denies neck pain Cardiovascular: Cardiovascular: Denies chest pain, Denies leg edema, Reports dyspnea and Reports dyspnea on exertion Respiratory: Respiratory: Reports dyspnea and Reports dyspnea on exertion Gastrointestinal: Gastrointestinal: Denies abdominal pain and Reports bloating Genitourinary: Genitourinary: Denies flank pain Musculoskeletal: Musculoskeletal: Denies back pain and Denies neck pain Integumentary/Breasts: Skin/Breast: Denies dry skin Neurologic: Reports Normal hearing present, Denies confusion and Denies headache(s) Psychiatric: Psychiatric: Denies anxiety and Denies confusion Endocrine: Endocrine: Denies excessive sweating and Denies fatigue Hematologic/Lymphatic: Hematologic/Lymphatic: Denies easy bleeding Allergic/Immunologic: Allergic/Immunologic: Denies GI upset with certain foods Exam Narrative: Exam Narrative: Patient is awake. She is alert oriented x1. Appears stated age Const: General: comfortable and no acute distress; No confusion Orientation/consciousness: No confusion HENMT: General nose exam: Normal nares present Eyes: Sclera: sclerae normal Neck: Neck: supple and no JVD Chest: Other: No reproducible chest wall pain to palpation Resp: Auscultation: diminished lung sounds Other: Blunting at the bases. Crackles are heard Cardio: Rate: regular rate Rhythm: abnormal rhythm irregularly irregular Skin: General skin exam: normal color Neuro: General: No confusion Cranial nerves: Yes Normal hearing present Cognition (Neuro): abnormal cognition Speech: normal speech Extrem: General: normal to inspection and no edema Psych: Affect: normal affect Objective Data Vital Signs Vital Signs: Vital Signs - 24 hr 05/07/20 12:00 05/07/20 14:00 05/07/20 14:42 Temperature 37.0 C Pulse Rate 128 H 103 H 104 H Respiratory Rate 22 H 16 Blood Pressure 136/64 Pulse Oximetry 97 05/07/20 14:55 05/07/20 15:44 05/07/20 16:00 Temperature Pulse Rate 104 H 104 H Respiratory Rate 18 Blood Pressure Pulse Oximetry 93 91 05/07/20 19:15 05/07/20 20:00 05/07/20 21:10 Temperature Pulse Rate 85 Respiratory Rate Blood Pressure Pulse Oximetry 91 88 L 05/07/20 21:11 05/07/20 21:23 05/07/20 21:44 Temperature 36.5 C Pulse Rat
[2020-05-08] MEDS: FUROSEMIDE INJ 40 MG/4 ML VIAL IV PUSH (12:08)
--- NOTE | 2020-05-08 13:17 | PC.NURSE ---
Patient left for EGD via stretcher with
--- NOTE | 2020-05-08 13:49 | PM.IMPN ---
Progress Note: A&P Assessment and Plan (1) Congestive heart failure (CHF): Qualifiers: Heart failure chronicity: acute Heart failure type: unspecified Qualified Code(s): I50.9 - Heart failure, unspecified Code(s): I50.9 - Heart failure, unspecified Status: Acute Assessment and Plan: Acute on chronic Right Sided Congestive Heart Failure. Due to abdominal distension and some swelling to her abdomen a CT was ordered in the ER which showed anasarca. BNP was 11,500. Most likely related to her right-sided heart failure. Also showing a small right and moderate left-sided pleural effusion with a small amount of abdominal ascites. Reviewing old records she was on Bumex 1 mg twice daily. Her medications were reviewed from her living facility and does NOT show any diuretics. She was started on IV Lasix 40 mg b.i.d, which is diuresising her well and Cardiology wanted to give a dose of 20 mg IV Lasix today and monitor her until tomorrow. Echocardiogram was ordered showing Normal LV size, mild LVH, normal LV systolic function, EF about 70%; diastolic dysfunction is present. RV enlargement with severe systolic dysfunction. Aortic valve is moderately calcified with restricted leaflet mobility; severe aortic stenosis with relatively low mean gradient; vmax 3.33 m/sec, mean gradient 24 mmHg, calculated aortic valve area 0.9 cm2. [id number] TR, severe pulmonary hypertension, RVSP 100 mmHg, dilated IVC without respiratory collapse. Continue to monitor blood pressure due to severe . Cardiology ordered repeat CXR 05/06/20 showing small pleural effusions. Edema is improving to extremities and abdominal area. Continue monitoring fluid status, weights daily, urine output, fluid restrict to 1800 cc daily (2) Anasarca: Code(s): R60.1 - Generalized edema Status: Acute Assessment and Plan: See above (3) Pleural effusion: Code(s): J90 - Pleural effusion, not elsewhere classified Status: Acute Assessment and Plan: See above . (4) Atrial fibrillation, controlled: Code(s): I48.91 - Unspecified atrial fibrillation Status: Acute Assessment and Plan: She is not on any long-term anticoagulation due to history of GI bleeding. Continue Cardizem orally daily. (5) Chronic respiratory failure: Code(s): J96.10 - Chronic respiratory failure, unspecified whether with hypoxia or hypercapnia Status: Acute Assessment and Plan: Patient is resting comfortably on 2.5 L via nasal cannula at this time. Breathing treatments have been scheduled. (6) CKD (chronic kidney disease), stage III: Code(s): N18.30 - Chronic kidney disease, stage 3 unspecified Status: Acute Assessment and Plan: Renal function appears to be stable from prior labs. Creatinine 0.9 today, stable. Continue monitoring during diuresis. Additional Plan Placed in admit status. Believe she will be here longer than 2 days. Subjective Date/time seen: 05/08/20 13:49 Interval history: Date of service 05/07/2020: Patient reports improvement in her breathing. She denies any shortness of breath at this time, she is now on 4 L of oxygen. She denies any coughing, chest pain, fever, chills, nausea, vomiting, abdominal pain, diarrhea, constipation, leg swelling or any other symptoms at this time. Exam Narrative: Exam Narrative: General: 79-year-old woman sitting up in bed watching TV, resting comfortably on 2.5 L via NC. Appears comfortable. In no acute distress. Skin: No jaundice or cyanosis. Good skin turgor. Neck: Full range of motion. Supple. Respiratory: Decreased breath sounds throughout, no wheezing, some crackles noted bilaterally
--- NOTE | 2020-05-08 13:54 | PM.DS ---
DS: Admitting Diagnosis Admitting Diagnosis Admitting Diagnosis: Edema of her abdomen DS: Discharge Diagnosis Discharge Diagnosis (1) Congestive heart failure (CHF): Qualifiers: Heart failure chronicity: acute Heart failure type: unspecified Qualified Code(s): I50.9 - Heart failure, unspecified Code(s): I50.9 - Heart failure, unspecified Status: Acute (2) Anasarca: Code(s): R60.1 - Generalized edema Status: Acute Assessment and Plan: See above (3) Pleural effusion: Code(s): J90 - Pleural effusion, not elsewhere classified Status: Acute Assessment and Plan: See above . (4) Atrial fibrillation, controlled: Code(s): I48.91 - Unspecified atrial fibrillation Status: Acute Assessment and Plan: She is not on any long-term anticoagulation due to history of GI bleeding. Continue Cardizem orally daily. (5) Chronic respiratory failure: Code(s): J96.10 - Chronic respiratory failure, unspecified whether with hypoxia or hypercapnia Status: Acute Assessment and Plan: Patient is resting comfortably on 2.5 L via nasal cannula at this time. Breathing treatments have been scheduled. (6) CKD (chronic kidney disease), stage III: Code(s): N18.30 - Chronic kidney disease, stage 3 unspecified Status: Acute Assessment and Plan: Renal function appears to be stable from prior labs. Creatinine 0.9 today, stable. Continue monitoring during diuresis. DS: Summary Hospital Course Reason for hospitalization: This is an 79 year old woman with history of chronic atrial fibrillation not on any anticoagulation due to history of GI bleed, chronic right-sided heart failure due to COPD and pulmonary hypertension, chronic respiratory failure on oxygen, dementia, who presented to the ER from [facility] in [place], [place] with complaints of swelling to her abdomen. The patient was getting a bath prior to arrival in the noticed some swelling to her left upper abdomen and decided to bring her into the hospital for further evaluation. Initial labs showed normal WBC, H&H, platelet count, coag normal, Cr 1.10, BUN 16, Slightly elevated K 5.2, BUN normal. Trop within normal range x3. BNP was 11,500. She was admitted for Acute on chronic Right Sided Congestive Heart Failure. started on diuretics. Due to abdominal distension and some swelling to her abdomen a CT was ordered in the ER which showed anasarca. BNP was 11,500. Also showing a small right and moderate left-sided pleural effusion with a small amount of abdominal ascites. Reviewing old records she was on Bumex 1 mg twice daily. Her medications were reviewed from her living facility and does NOT show any diuretics. She was started on IV Lasix 40 mg b.i.d, which is diuresising her well and Cardiology wanted to give a dose of 20 mg IV Lasix the last few days. Echocardiogram was ordered showing Normal LV size, mild LVH, normal LV systolic function, EF about 70%; diastolic dysfunction is present. RV enlargement with severe systolic dysfunction. Aortic valve is moderately calcified with restricted leaflet mobility; severe aortic stenosis with relatively low mean gradient; vmax 3.33 m/sec, mean gradient 24 mmHg, calculated aortic valve area 0.9 cm2. [id number] TR, severe pulmonary hypertension, RVSP 100 mmHg, dilated IVC without respiratory collapse. Patient doing well at this time, blood pressure stable, renal function stable. Cardiology would like her to be discharged home with Lasix 20 mg p.o. daily. Will check BMP in 1 week. Heart Healthy diet. Monitor weights. Hospital Course: see above Status at Discharge Cognitive/behavioral status at dischar
== END 2020-05-08 15:20 | DRG 291 ==
LOC: ANHED 23:30 → ANH3MEDSUR 05-05 07:36
PROVIDERS: Admitting Provider Internal Medicine; Emergency Provider Family Medicine; PCP Internal Medicine; Visit Provider Physician Assistant
DX: I13.0 Hypertensive heart and chronic kidney disease with heart failure and stage 1 through stage 4 chronic kidney disease, or unspecified chronic kidney disease (principal); I50.31 Acute diastolic (congestive) heart failure; J90 Pleural effusion, not elsewhere classified; I48.20 Chronic atrial fibrillation, unspecified; J96.10 Chronic respiratory failure, unspecified whether with hypoxia or hypercapnia; I50.9 Heart failure, unspecified; J44.9 Chronic obstructive pulmonary disease, unspecified; R60.1 Generalized edema; N18.30 Chronic kidney disease, stage 3 unspecified; I35.0 Nonrheumatic aortic (valve) stenosis; F03.90 Unspecified dementia, unspecified severity, without behavioral disturbance, psychotic disturbance, mood disturbance, and anxiety; Z99.81 Dependence on supplemental oxygen; Z87.891 Personal history of nicotine dependence; Z90.710 Acquired absence of both cervix and uterus
CPT/HCPCS: 36415; 71045; 71046; 74177; 80048; 80053; 83735; 83880; 84484; 85025; 85027; 85610; 93005; 93306; 94640; 99285; A9270; J1650; J1940; Q9967